=== PATIENT | female | born 1935 | race Two or more races ===

== ENCOUNTER 2025-05-13 10:55 | Emergency (ER) | payer OTHER ==
[~2025-05-13] VITALS: Ht 167.6 cm; Wt 72.0 kg
--- NOTE | 2025-05-13 13:33 | DVH ---
Exam: CT CT AB PEL WO CON-NO ORAL OR IV History: Rule out small bowel obstruction Comparison Study: CT CT AB PEL WITH IV CON ONLY on DOS: 02/23/25 Technique: Multidetector spiral CT of the abdomen was performed from lung bases to pubic symphysis. Imaging was performed without IV contrast. Axial, coronal and sagittal multiplanar reformats were ob tained from the axial data set by the technologist. Radiation Dose : 1. Abdomen/Pelvis: CTDIvol 13.64 mGy, DLP 3.58 mGy*cm. Findings: Evaluation of solid organs is limited due to lack of intravenous contrast use. Lung Bases: No acute or significant lung base finding. Moderate cardiomegaly No pleural or pericardi al effusion. Liver: The liver is normal in size. No focal lesions. Gallbladder and Biliary Tree: Cholecystectomy. Spleen: Unremarkable Pancreas: The pancreas is grossly normal in appearance. Adrenal Glands: Unremarkable Kidneys: 1 cm hyperdense right renal mass, axial image 32. Possible proteinaceous cyst. Ultrasound r ecommended. 2 cm right lower pole renal cyst. Bladder: Grossly unremarkable for degree of distention. Bowel: The stomach is grossly normal in appearance. Small bowel and colon are normal in caliber and d istribution. The appendix is not visualized; however, no secondary findings of acute appendicitis id entified. Moderate fecal residue seen throughout the colon. Ascites: Absent Lymphadenopathy: No mesenteric, retroperitoneal or periportal lymphadenopathy. Abdominal Wall and Mesentery: Unremarkable. Vasculature: Severe vascular calcification of the abdominal aorta without aneurysm. Pelvic Organs: Unremarkable Musculoskeletal: Moderate lumbar spondylosis. Normal sacroiliac joints. IMPRESSION: 1. No acute abdominal or pelvic findings. 2. No evidence of small bowel obstruction. 3. Moderate fecal residue seen throughout the colon. 4. 1 cm hyperdense right renal mass, possible proteinaceous cyst. 5. Ultrasound recommended. Moderately severe fecal residue throughout the colon. Radiation optimization: All CT scans at this facility use at least one of these dose optimization reema hniques: automated exposure control mA and/or kV adjustment per patient size (includes targeted exam s where dose is matched to clinical indication) or iterative reconstruction.
[2025-05-13 13:46] LABS: Nucleated Red Blood Cells % 0.0 %
[2025-05-13 13:48] LABS: Hematocrit 26.8 % (36.0-46.0); Hemoglobin 7.9 g/dL (12.2-16.2); Mean Corpuscular Hemoglobin 20.0 pg (28.0-32.0); Mean Corpuscular Volume 68.0 fL (80.0-100.0)
[2025-05-13 14:00] LABS: Albumin 4.1 g/dL (3.2-4.8); Alkaline Phosphatase 87 U/L (46-116); Anion Gap 10 (5-15); BUN/Creatinine Ratio 11.1 (10.0-20.0); Bilirubin, Total 0.4 mg/dL (0.2-1.0); Blood Urea Nitrogen 10 mg/dL (9-23); Calcium 8.8 mg/dL (8.7-10.4); Carbon Dioxide 27 mmol/L (20-31); Chloride 105 mmol/L (98-107); Potassium 3.9 mmol/L (3.5-5.1); Sodium 142 mmol/L (136-145); Total Protein 7.1 g/dL (5.7-8.2)
[2025-05-13 14:03] LABS: Alanine Aminotransferase < 9 U/L (7-40); Glucose 126 mg/dL (74-106)
[2025-05-13] MEDS ORDERED: CEPH500C PO (14:12)
--- NOTE | 2025-05-13 14:12 | ED.PDOC ---
GI ASSESSMENT HPI Comments 61-yqpi-osu-female presents with daughter for c/c of constipation and abdominal pain. Patient endorses on 4x day history of symptoms. Last bowel movement was 5x days ago, which is reported to be abnormal for the patient. No relief or improvement with lxby-dpn-gdssdrt stool softeners and milk of magnesia use. She has a history of vulvar carcinoma. Daughter expresses concerns for possible small bowel obstruction. Also reports increased urine frequency and concerns for UTI. Denial of nausea, vomiting, diarrhea, fever, chills, or further associated symptoms. Chief Complaint: Constipation Time Seen by MD: 12:36 Reviewed Notes: Nurses Notes, Medications, Allergies Allergies: Coded Allergies: NO KNOWN ALLERGIES (Unverified , 05/13/25) Home Meds Active Scripts Cephalexin Monohydrate (Cephalexin) 500 Mg Cap, 1 CAP PO BID for 10 Days, #20 CAP Prov:MICHAEL PERRY MD 05/13/25 Information Source: Patient, Relative Mode of Arrival: Wheelchair Timing: Days Duration: Since onset Prehospital treatment: Other (see HPI) Past Medical History PAST MEDICAL HISTORY: Cancer (vulvar carcinoma ) Social History Smoker: Non-Smoker Alcohol: Denies ETOH Use Drugs: Denies Drug Use Lives In: Home, Assisted Care Constitutional: denies: chills, diaphoresis, fatigue, fever, malaise, sweats, weakness, others EENTM: denies: blurred vision, double vision, ear bleeding, ear discharge, ear drainage, ear pain, ear ringing, eye pain, eye redness, hearing loss, mouth pain, mouth swelling, nasal discharge, nose bleeding, nose congestion, nose pain, photophobia, tearing, throat pain, throat swelling, voice changes, others Respiratory: denies: cough, hemoptysis, orthopnea, SOB at rest, shortness of breath, SOB with excertion, stridor, wheezing, others Cardiovascular: denies: chest pain, dizzy spells, diaphoresis, Dyspnea on exertion, edema, irregular heart beat, left arm pain, lightheadedness, palpitations, PND, syncope, others Gastrointestinal: reports: abdominal pain, constipated; denies: abdomen distended, blood streaked bowels, diarrhea, dysphagia, difficulty swallowing, hematemesis, melena, nausea, poor appetite, poor fluid intake, rectal bleeding, rectal pain, vomiting, others Genitourinary: reports: frequency; denies: abnormal vagina bleeding, burning, dyspareunia, dysuria, flank pain, hematuria, incontinence, pain, , vagina discharge, urgency, others Neurological: denies: dizziness, fainting, headache, left sided numbness, left sided weakness, numbness, paresthesia, pre-existing deficit, right sided numbness, right sided weakness, seizure, speech problems, tingling, tremors, weakness, others Musculoskeletal: denies: back pain, gout, joint pain, joint swelling, muscle pain, muscle stiffness, neck pain, others Integumetry: denies: bruises, change in color, change in hair/nails, dryness, laceration, lesions, lumps, rash, wounds, others Allergic/Immunocompromised: denies: Difficulty Healing, Frequent Infections, Hives, Itching, others Hematologic/Lymphatic: denies: anemia, blood clots, easy bleeding, easy bruising, swollen glands, others Endocrine: denies: excessive hunger, excessive sweating, excessive thirst, excessive urination, flushing, intolerance to cold, intolerance to heat, une xplained weight gain, unexplained weight loss, others Psychiatric: denies: anxiety, bipolar disorder, depression, hopeless, panic disorder, schizophrenia, sleepless, suicidal, others All Other Systems: Reviewed and Negative Physical Exam General Appearance: No Apparent Distress, Normal HEENT: Normal ENT Inspection, Pharynx Normal, TMs Normal Neck: Full Range of Motion, Non-Tender, Normal, Normal Inspection Respiratory: Chest Non-Tender, Lungs Clear, No Accessory Muscle Use, No Respiratory Distress, Normal Breath Sounds Cardiovascular: No Edema, No JVD, No Murmur, No Gallop, Normal Peripheral Pul ses, Regular Rate/Rhythm Breast Exam: Deferred Gastrointestinal: No Organomegaly, Non Tender, No Pulsatile Mass, Normal Bowel Sounds, Soft Genitalia: Deferred Pelvic: Deferred Rectal: Deferred Extremities: No calf tenderness, Normal capillary refill, Normal inspection, Normal range of motion, Non-tender, No pedal edema Musculoskeletal : Apperance: Normal Neurologic: Alert, No Motor Deficits, Normal Affect, Normal Mood, No Sensory Deficits Cerebellar Function: Normal Reflexes: Normal Skin: Dry, Normal Color, Warm Lymphatic: No Adenopathy Was a procedure done? Was a procedure done?: No GI differential Dx Differential Diagnosis: Other Other Differential Diagnosis Small-bowel obstruction, pyelonephritis, UTI, constipation, abdominal mass, electrolyte abnormality X-Ray, Labs, Meds, VS Vital Signs Date Time Temp Pulse Resp B/P (MAP) Pulse Ox O2 Delivery O2 Flow Rate FiO2 05/13/25 10:57 98.0 73 18 133/63 96 98.0 Lab Test 05/13/25 14:47 05/13/25 13:08 Range/Units Urine Color Light-orange Yellow Urine Clarity Ex.turbid Clear Urine pH 5.5 5.0-9.0 Urine Specific [place] 1.026 1.001-1.035 Urine Protein 2+ H Negative Urine Ketones Trace Negative Urine Blood Negative Negative /uL Urine Nitrite 2+ H Negative Urine Bilirubin Negative Negative Urine Urobilinogen 2 H Negative mg/dL Urine Leukocyte Esterase 3+ Negative /uL Urine RBC 90 0 - 4 /hpf Urine WBC Clumps Present None Seen /hpf Urine Microscopic WBC 2624 H 0-5 /HPF Urine Squamous Epithelial Cells None seen <5 /hpf Urine Calcium Oxalate Crystals Mod None Seen Urine Bacteria None seen None Seen /hpf Urine Mucus Few None Seen Urine Glucose Normal Normal mg/dL White Blood Count 13.5 H 4.4-10.8 10^3/uL Red Blood Count 3.94 L 4.0-5.20 10^6/uL Hemoglobin 7.9 L 12.2-16.2 g/dL Hematocrit 26.8 L 36.0-46.0 % Mean Corpuscular Volume 68.0 L 80.0-100.0 fL Mean Corpuscular Hemoglobin 20.0 L 28.0-32.0 pg Mean Corpuscular Hemoglobin Concent 29.3 L 32.0-36.0 g/dL Red Cell Distribution Width 19.6 H 11.8-14.3 % Platelet Count 326 140-450 10^3/uL Mean Platelet Volume 8.3 6.9-10.8 fL Neutrophils (%) (Auto) 74.0 37.0-80.0 % Lymphocytes (%) (Auto) 16.2 10.0-50.0 % Monocytes (%) (Auto) 8.7 0.0-12.0 % Eosinophils (%) (Auto) 0.8 0.0-7.0 % Basophils (%) (Auto) 0.3 0.0-2.0 % Neutrophils # (Auto) 10.0 H 1.6-8.6 10 ^3/uL Lymphocytes # (Auto) 2.2 0.4-5.4 10 ^3/uL Monocytes # (Auto) 1.2 0-1.3 10 ^3/uL Eosinophils # (Auto) 0.1 0-0.8 10 ^3/uL Basophils # (Auto) 0 0-0.2 10 ^3/uL Nucleated Red Blood Cells 0.0 % Sodium Level 142 136-145 mmol/L Potassium Level 3.9 3.5-5.1 mmol/L Chloride Level 105 98-107 mmol/L Carbon Dioxide Level 27 20-31 mmol/L Anion Gap 10 5-15 Blood Urea Nitrogen 10 9-23 mg/dL Creatinine 0.90 0.550-1.02 mg/dL Glomerular Filtration Rate Calc 61 >90 mL/min BUN/Creatinine Ratio 11.1 10.0-20.0 Serum Glucose 126 H 74-106 mg/dL Calcium Level 8.8 8.7-10.4 mg/dL Total Bilirubin 0.4 0.2-1.0 mg/dL Aspartate Amino Transferase (AST) 10 L 13-40 U/L Alanine Aminotransferase (ALT) < 9 7-40 U/L Alkaline Phosphatase 87 46-116 U/L Total Protein 7.1 5.7-8.2 g/dL Albumin 4.1 3.2-4.8 g/dL [place] [address] Ph: [phone] DIAGNOSTIC IMAGING Diagnostic Imaging Report : [id number] Signed PATIENT: OLGA AMOS ACCT: [id number] UNIT: [id number] : 1935 LOC: ER ROOM / BED: / AGE / SEX: 89 / F ADM STATUS: REG ER SERVICE 1237 ORDERING PHYSICIAN: MICHAEL PERRY MD PROCEDURE(s): ABPL - CT AB PEL WO CON-NO ORAL OR IV REASON: Rule out small bowel obstruction ORDER NUMBER(s): [id number], ACCESSION NUMBER(s): [id number] Exam: CT CT AB PEL WO CON-NO ORAL OR IV History: Rule out small bowel obstruction Comparison Study: CT CT AB PEL WITH IV CON ONLY on DOS: 02/23/25 Technique: Multidetector spiral CT of the abdomen was performed from lung bases to pubic symphysis. Imaging was performed without IV contrast. Axial, coronal and sagittal multiplanar reformats were obtained from the axial data set by the technologist. Radiation Dose : 1. Abdomen/Pelvis: CTDIvol 13.64 mGy, DLP 3.58 mGy*cm. Findings: Evaluation of solid organs is limited due to lack of intravenous contrast use. Lung Bases: No acute or significant lung base finding. Moderate cardiomegaly No pleural or pericardial effusion. Liver: The liver is normal in size. No focal lesions. Gallbladder and Biliary Tree: Cholecystectomy. Spleen: Unremarkable Pancreas: The pancreas is grossly normal in appearance. Adrenal Glands: Unremarkable Kidneys: 1 cm hyperdense right renal mass, axial image 32. Possible proteinaceous cyst. Ultrasound recommended. 2 cm right lower pole renal cyst. Bladder: Grossly unremarkable for degree of distention. Bowel: The stomach is grossly normal in appearance. Small bowel and colon are normal in caliber and distribution. The appendix is not visualized; however, no secondary findings of acute appendicitis identified. Moderate fecal residue seen throughout the colon. Ascites: Absent Lymphadenopathy: No mesenteric, retroperitoneal or periportal lymphadenopathy. Abdominal Wall and Mesentery: Unremarkable. Vasculature: Severe vascular calcification of the abdominal aorta without aneurysm. Pelvic Organs: Unremarkable Musculoskeletal: Moderate lumbar spondylosis. Normal sacroiliac joints. IMPRESSION: 1. No acute abdominal or pelvic findings. 2. No evidence of small bowel obstruction. 3. Moderate fecal residue seen throughout the colon. 4. 1 cm hyperdense right renal mass, possible proteinaceous cyst. 5. Ultrasound recommended. Moderately severe fecal residue throughout the colon. Radiation optimization: All CT scans at this facility use at least one of these dose optimization techniques: automated exposure control mA and/or kV adju stment per patient size (includes targeted exams where dose is matched to clinical indication) or iterative reconstruction. ATED BY: RENZO ARCE MD DICTATED DATE/TIME: 05/13/25 1331 SIGNED BY: RENZO ARCE MD SIGNED DATE/TIME: 05/13/25 133 CC: 89-year-old female presents here with abdominal pain and constipation . Last bowel movement was 5 days ago which is abnormal for the patient. She does have a history of vulvar carcinoma. Daughter states she has given her multiple jngd-yzs-psxaxip stool softeners and milk of magnesia but continues to have constipation. At this time concern for possible small bowel obstruction. She does also report increased frequency of urine concern for UTI. Concern for blockage of the abdominal mass to the urinary stream. I have ordered a CBC CMP urinalysis and a CT abdomen pelvis for evaluation. CT abdomen pelvis at this time demonstrates significant stool burden. No evidence of small-bowel obstruction. Blood work does demonstrate a leukocytosis of 13.5. Also demonstrates anemia 7.9. 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 Urine is still pending. However given her leukocytosis and increased frequency of urine, plan is to treat her with a Keflex for the UTI either way. Daughter is agreeable to this. Regarding her constipation advised daughter to buy nmeg-zmf-yboivgm MiraLax and take 1 capful of MiraLax powder with 8 oz of water and drink this 4-5 times times a day for the 1st 2 days after that she should drank 1 capful of MiraLax with 8 oz water once a day to maintenance. Also advised her to follow up with the PCP has a PCP may want to however take something else besides MiraLax. I offered her an enema in the ER but patient refused. Urine is positive for UTI today. I have sent home Keflex with the patient. Time of 1ST Reevaluation: 13:06 Reevaluation 1ST: Unchanged Patient Education/Counseling: Diagnosis, Treatment Family Education/Counseling: Diagnosis, Treatment SEPSIS Sepsis Screen Date sepsis recognized/suspect: May 13, 2025 Time Sepsis recognized/suspect: 1059 Recent Procedure: No On Antibiotic Therapy: No Respiratory Rate >20: No Heart Rate >90: No Temp<36 C (96.8 F) or >38.3 C: No SBP <90 or MAP <65 mmHG: No New Acute Mental Status Change: No Is the patient on CPAP, BIPAP,: No Physician Orders Ct Ab Pel Wo Con-No Oral Or Iv (05/13/25 12:37) Vital Signs Date Time Temp Pulse Resp B/P (MAP) Pulse Ox O2 Delivery O2 Flow Rate FiO2 05/13/25 10:57 98.0 73 18 133/63 96 98.0 Laboratory Tests Test 05/13/25 13:08 White Blood Count 13.5 10^3/uL (4.4-10.8) H Departure 1 Departure Time of Disposition: 03:10 Impression: Primary Impression: Constipation Qualified Codes: K59.00 - Constipation, unspecified Additional Impressions: UTI (urinary tract infection) Qualified Codes: N30.01 - Acute cystitis with hematuria Anemia Qualified Codes: D64.9 - Anemia, unspecified Disposition: HOME / SELF CARE / HOMELESS Condition: Stable Additional Instructions: You have a UTI today. Your CT scan today demonstrates that you are very constipated. Please see the scanned below. Please take MiraLax 1 capful a powder mixed with 8 oz of water or clear juice, 4 to 5 times a day for the 1st 2 days only. After that take 1 cap full a powder mixed with 8 oz of water once a day for maintenance. Please see your regular doctor , here she may have other recommendations for stool softeners instead of MiraLax. Please return back to the ER if symptoms worsen or persist. [place] [address] Ph: [phone] DIAGNOSTIC IMAGING Diagnostic Imaging Report : [id number] Signed PATIENT: OLGA AMOS ACCT: [id number] UNIT: [id number] : 1935 LOC: ER ROOM / BED: / AGE / SEX: 89 / F ADM STATUS: REG ER SERVICE 1237 ORDERING PHYSICIAN: MICHAEL PERRY MD PROCEDURE(s): ABPL - CT AB PEL WO CON-NO ORAL OR IV REASON: Rule out small bowel obstruction ORDER NUMBER(s): [id number], ACCESSION NUMBER(s): [id number] Exam: CT CT AB PEL WO CON-NO ORAL OR IV History: Rule out small bowel obstruction Comparison Study: CT CT AB PEL WITH IV CON ONLY on DOS: 02/23/25 Technique: Multidetector spiral CT of the abdomen was performed from lung bases to pubic symphysis. Imaging was performed without IV contrast. Axial, coronal and sagittal multiplanar reformats were obtained from the axial data set by the technologist. Radiation Dose : 1. Abdomen/Pelvis: CTDIvol 13.64 mGy, DLP 3.58 mGy*cm. Findings: Evaluation of solid organs is limited due to lack of intravenous contrast use. Lung Bases: No acute or significant lung base finding. Moderate cardiomegaly No pleural or pericardial effusion. Liver: The liver is normal in size. No focal lesions. Gallbladder and Biliary Tree: Cholecystectomy. Spleen: Unremarkable Pancreas: The pancreas is grossly normal in appearance. Adrenal Glands: Unremarkable Kidneys: 1 cm hyperdense right renal mass, axial image 32. Possible proteinaceous cyst. Ultrasound recommended. 2 cm right lower pole renal cyst. Bladder: Grossly unremarkable for degree of distention. Bowel: The stomach is grossly normal in appearance. Small bowel and colon are normal in caliber and distribution. The appendix is not visualized; however, no secondary findings of acute appendicitis identified. Moderate fecal residue seen throughout the colon. Ascites: Absent Lymphadenopathy: No mesenteric, retroperitoneal or periportal lymphadenopathy. Abdominal Wall and Mesentery: Unremarkable. Vasculature: Severe vascular calcification of the abdominal aorta without aneurysm. Pelvic Organs: Unremarkable Musculoskeletal: Moderate lumbar spondylosis. Normal sacroiliac joints. IMPRESSION: 1. No acute abdominal or pelvic findings. 2. No evidence of small bowel obstruction. 3. Moderate fecal residue seen throughout the colon. 4. 1 cm hyperdense right renal mass, possible proteinaceous cyst. 5. Ultrasound recommended. Moderately severe fecal residue throughout the colon. Radiation optimization: All CT scans at this facility use at least one of these dose optimization techniques: automated exposure control mA and/or kV adjustment per patient size (includes targeted exams where dose is matched to clinical indication) or iterative reconstruction. ATED BY: RENZO ARCE MD DICTATED DATE/TIME: 05/13/251330 SIGNED BY: RENZO ARCE MD SIGNED DATE/TIME: 05/13/25 133 CC: e-Prescriptions Cephalexin Monohydrate (Cephalexin) 500 Mg Cap 1 CAP PO BID for 10 Days, #20 CAP Prov: MICHAEL PERRY MD 05/13/25 Critical Care Note Critical Care Time?: No Stability Stability form required: No Heart Score Heart Score: Heart Score Response (Comments) Value History N/A 0 EKG N/A 0 Age N/A 0 Risk Factors N/A 0 Troponin N/A 0 Total 0 I personally scribed for MICHAEL PERRY MD ([email or web address]) on 05/13/25 at 14:47. Electronically submitted by Diogo Cartagena ([email or web address]). I personally scribed for MICHAEL PERRY MD ([email or web address]) on 05/13/25 at 14:55. Electronically submitted by Diogo Cartagena ([email or web address]). MICHAEL PERRY MD May 13, 2025 14:12
[2025-05-13 15:00] VITALS: BP 134/51; TEMP 98.3
[2025-05-13 15:09] LABS: Urine Protein, UAD 2+ (Negative); Urine WBC Clumps PRESENT /hpf (None Seen)
[2025-05-13 16:22] VITALS: PULSE 76; RESP 18; O2SAT 94
== END 2025-05-13 16:34 | disposition home or self-care (01) ==
LOC: ER 10:58
DX: N39.0 Urinary tract infection, site not specified (principal); D64.9 Anemia, unspecified; K59.00 Constipation, unspecified; Z79.899 Other long term (current) drug therapy; Z85.44 Personal history of malignant neoplasm of other female genital organs
CPT/HCPCS: 36415; 74176; 80053; 81001; 85025